=== PATIENT | male | born 1930 | race Caucasian/White ===

== ENCOUNTER 2017-08-25 11:10 | Observation (INO) | payer MEDICARE, BC ==
--- NOTE | 2017-08-25 11:22 | EDM.PDOC ---
ED HPI GENERAL MEDICAL PROBLEM - General Chief Complaint: Neuro Symptoms/Deficits Stated Complaint: POSSIBLE STROKE Time Seen by Provider: 08/25/17 11:21 Source of Information: Reports: Patient - History of Present Illness INITIAL COMMENTS - FREE TEXT/NARRATIVE: HISTORY AND PHYSICAL: History of present illness: [Patient is sent to me by his primary care Dr. Jovel [facility] Patient has had strokelike symptoms waxing and waning over the last 2 weeks, 2 weeks prior he had an episode of confusion as well as right facial droop drooling and slurred speech, he was in [place] on vacation at this time in his opted to not address the issue at that time his symptoms were improving. He did present to his primary care today He has had some other symptoms off and on again over the last 2 week period nurse actually similar symptoms waxing and waning, today he is having memory memory deficit as far as recall of numbers such as his phone number primary living address etc. otherwise he has fairly normal function strength is 5 out of 5 he is able to ambulate and eat solid food and liquid No fever nausea vomiting chills sweats no chest pain shortness breath headache dizziness palpitation no bowel or urine symptoms ] No slurred speech at current Review of systems: As per history of present illness and below otherwise all systems reviewed and negative. Past medical history: As per history of present illness and as reviewed below otherwise noncontributory. Surgical history: As per history of present illness and as reviewed below otherwise noncontributory. Social history: No reported history of drug or alcohol abuse. Family history: As per history of present illness and as reviewed below otherwise noncontributory. Physical exam: HEENT: Atraumatic, normocephalic, pupils reactive, negative for conjunctival pallor or scleral icterus, mucous membranes moist, throat clear, neck supple, nontender, trachea midline. Lungs: Clear to auscultation, breath sounds equal bilaterally, chest nontender. Heart: S1S2, regular, negative for clicks, rubs, or JVD. Abdomen: Soft, nondistended, nontender. Negative for masses or hepatosplenomegaly. Negative for costovertebral tenderness. Pelvis: Stable nontender. Genitourinary: Deferred. Rectal: Deferred. Extremities: Atraumatic, negative for cords or calf pain. Neurovascular unremarkable. Neuro: Awake, alert, oriented. Cranial nerves II through XII unremarkable. Cerebellum unremarkable. Motor and sensory unremarkable throughout. Exam nonfocal. Diagnostics: [CBC CMP UA drug screen alcohol TSH INR EKG Chest [address] no contrast ] Therapeutics: [Patient will be admitted to complete workup with MRI and ultrasound imaging discussed ] Impression: [TIA versus stroke Definitive disposition and diagnosis as appropriate pending reevaluation and review of above. - Related Data Allergies Allergy/AdvReac Type Severity Reaction Status Date / Time No Known Allergies Allergy Verified 08/25/17 11:33 Home Meds: Home Meds LORazepam [LORazepam] 0.5 mg PO ASDIRECTED PRN 08/25/17 [History] ED ROS GENERAL - Review of Systems Review Of Systems: ROS reveals no pertinent complaints other than HPI. ED EXAM, GENERAL - Physical Exam Exam: See Below Course - Vital Signs Last Recorded V/S: Last Vital Signs Temp 98.2 F 08/25/17 13:56 Pulse 88 08/25/17 13:56 Resp 16 08/25/17 13:56 BP 148/95 H 08/25/17 13:56 Pulse Ox 92 L 08/25/17 13:56 - Orders/Labs/Meds Orders: Active Orders 24 hr Category Date Time Status EKG Documentation Completion [RC] STAT Care 08/25/17 11:10 Active Labs: Laboratory Tests 08/25/17 08/25/17 08/25/17 Range/Units 11:30 11:30 11:30 WBC 5.90 (4.0-11.0) K/uL RBC 4.36 L (4.50-5.90) M/uL Hgb 14.7 (13.0-17.0) g/dL Hct 42.2 (38.0-50.0) % MCV 96.8 (80.0-98.0) fL MCH 33.7 H (27.0-32.0) pg MCHC 34.8 (31.0-37.0) g/dL RDW Std Deviation 46.9 (28.0-62.0) fl RDW Coeff of [place] 13 (11.0-15.0) % Plt Count 174 (150-400) K/uL MPV 10.60 (7.40-12.00) fL Neut % (Auto) 75.9 (48.0-80.0) % Lymph % (Auto) 14.4 L (16.0-40.0) % [place] % (Auto) 7.5 (0.0-15.0) % Eos % (Auto) 1.9 (0.0-7.0) % Baso % (Auto) 0.3 (0.0-1.5) % Neut # (Auto) 4.5 (1.4-5.7) K/uL Lymph # (Auto) 0.9 (0.6-2.4) K/uL [place] # (Auto) 0.4 (0.0-0.8) K/uL Eos # (Auto) 0.1 (0.0-0.7) K/uL Baso # (Auto) 0.0 (0.0-0.1) K/uL Nucleated RBC % 0.0 /100WBC Nucleated RBCs # 0 K/uL INR Sodium 140 (136-146) mmol/L Potassium 4.4 (3.5-5.1) mmol/L Chloride 108 (98-110) mmol/L Carbon Dioxide 22 (21-31) mmol/L BUN 22 (6.0-23.0) mg/dL Creatinine 0.7 (0.6-1.5) mg/dL Est Cr Clr Drug Dosing 74.64 mL/min Estimated GFR (MDRD) > 60.0 ml/min Glucose 98 (60-110) mg/dL Calcium 9.5 (8.8-10.8) mg/dL Total Bilirubin 1.6 H (0.1-1.5) mg/dL AST 21 (5-40) IU/L ALT 19 (8-54) IU/L Alkaline Phosphatase 81 (40-150) Creatine Kinase 55 (9-236) IU/L CK-MB (CK-2) 2.9 (0-6.6) ng/ml Troponin I < 0.10 (0.0-0.29) NG/ML B-Natriuretic Peptide 65 (<100) PG/ML Total Protein 7.0 (6.0-8.0) g/dL Albumin 4.2 (3.4-4.8) g/dL Globulin 2.8 (2.0-3.5) g/dL Albumin/Globulin Ratio 1.5 (1.3-2.8) TSH 3rd Generation 1.00 (0.36-3.74) uIU/mL Urine Color Urine Appearance Urine pH (5.0-8.0) Ur Specific [place] (1.001-1.035) Urine Protein (NEGATIVE) mg/dL Urine Glucose (UA) (NEGATIVE) mg/dL Urine Ketones (NEGATIVE) mg/dL Urine Occult Blood (NEGATIVE) Urine Nitrite (NEGATIVE) Urine Bilirubin (NEGATIVE) Urine Urobilinogen (<2.0) EU/dL Ur Leukocyte Esterase (NEGATIVE) Urine RBC (0-2/HPF) Urine WBC (0-5/HPF) Ur Epithelial Cells (NONE-FEW) Urine Bacteria (NEGATIVE) Urine Opiates Screen (NEGATIVE) Ur Oxycodone Screen (NEGATIVE) Urine Methadone Screen (NEGATIVE) Ur Barbiturates Screen (NEGATIVE) Ur Phencyclidine Scrn (NEGATIVE) Ur Amphetamine Screen (NEGATIVE) U Methamphetamines Scrn (NEGATIVE) U Benzodiazepines Scrn (NEGATIVE) U Cocaine Metab Screen (NEGATIVE) U Marijuana (THC) Screen (NEGATIVE) Ethyl Alcohol < 10.0 mg/dL 08/25/17 08/25/17 08/25/17 Range/Units 11:30 13:05 13:05 WBC (4.0-11.0) K/uL RBC (4.50-5.90) M/uL Hgb (13.0-17.0) g/dL Hct (38.0-50.0) % MCV (80.0-98.0) fL MCH (27.0-32.0) pg MCHC (31.0-37.0) g/dL RDW Std Deviation (28.0-62.0) fl RDW Coeff of [place] (11.0-15.0) % Plt Count (150-400) K/uL MPV (7.40-12.00) fL Neut % (Auto) (48.0-80.0) % Lymph % (Auto) (16.0-40.0) % [place] % (Auto) (0.0-15.0) % Eos % (Auto) (0.0-7.0) % Baso % (Auto) (0.0-1.5) % Neut # (Auto) (1.4-5.7) K/uL Lymph # (Auto) (0.6-2.4) K/uL [place] # (Auto) (0.0-0.8) K/uL Eos # (Auto) (0.0-0.7) K/uL Baso # (Auto) (0.0-0.1) K/uL Nucleated RBC % /100WBC Nucleated RBCs # K/uL INR 1.01 Sodium (136-146) mmol/L Potassium (3.5-5.1) mmol/L Chloride (98-110) mmol/L Carbon Dioxide (21-31) mmol/L BUN (6.0-23.0) mg/dL Creatinine (0.6-1.5) mg/dL Est Cr Clr Drug Dosing mL/min Estimated GFR (MDRD) ml/min Glucose (60-110) mg/dL Calcium (8.8-10.8) mg/dL Total Bilirubin (0.1-1.5) mg/dL AST (5-40) IU/L ALT (8-54) IU/L Alkaline Phosphatase (40-150) Creatine Kinase (9-236) IU/L CK-MB (CK-2) (0-6.6) ng/ml Troponin I (0.0-0.29) NG/ML B-Natriuretic Peptide (<100) PG/ML Total Protein (6.0-8.0) g/dL Albumin (3.4-4.8) g/dL Globulin (2.0-3.5) g/dL Albumin/Globulin Ratio (1.3-2.8) TSH 3rd Generation (0.36-3.74) uIU/mL Urine Color YELLOW Urine Appearance CLEAR Urine pH 7.0 (5.0-8.0) Ur Specific [place] 1.020 (1.001-1.035) Urine Protein NEGATIVE (NEGATIVE) mg/dL Urine Glucose (UA) NEGATIVE (NEGATIVE) mg/dL Urine Ketones NEGATIVE (NEGATIVE) mg/dL Urine Occult Blood NEGATIVE (NEGATIVE) Urine Nitrite NEGATIVE (NEGATIVE) Urine Bilirubin NEGATIVE (NEGATIVE) Urine Urobilinogen 0.2 (<2.0) EU/dL Ur Leukocyte Esterase NEGATIVE (NEGATIVE) Urine RBC 0-1 (0-2/HPF) Urine WBC 0-1 (0-5/HPF) Ur Epithelial Cells FEW (NONE-FEW) Urine Bacteria FEW (NEGATIVE) Urine Opiates Screen NEGATIVE (NEGATIVE) Ur Oxycodone Screen NEGATIVE (NEGATIVE) Urine Methadone Screen NEGATIVE (NEGATIVE) Ur Barbiturates Screen NEGATIVE (NEGATIVE) Ur Phencyclidine Scrn NEGATIVE (NEGATIVE) Ur Amphetamine Screen NEGATIVE (NEGATIVE) U Methamphetamines Scrn NEGATIVE (NEGATIVE) U Benzodiazepines Scrn NEGATIVE (NEGATIVE) U Cocaine Metab Screen NEGATIVE (NEGATIVE) U Marijuana (THC) Screen NEGATIVE (NEGATIVE) Ethyl Alcohol mg/dL Departure - Departure Time of Disposition: 14:44 Disposition: Refer to Observation Condition: Fair Clinical Impression: TIA (transient ischemic attack) - Discharge Information Referrals: Jr Jovel MD [Primary Care Provider] - Forms: ED Department Discharge - My Orders Last 24 Hours: My Active Orders 08/25/17 11:10 EKG Documentation Completion [RC] STAT - Assessment/Plan Last 24 Hours: My Active Orders 08/25/17 11:10 EKG Documentation Completion [RC] STAT
[2017-08-25 12:00] LABS: CHLORIDE,CL 108 mmol/L (98-110); SODIUM,NA 140 mmol/L (136-146)
--- NOTE | 2017-08-25 13:19 | CT ---
EXAMINATION: Non contrast CT head. Coronal and sagittal reformats. HISTORY: Altered mental status FINDINGS: No evidence of intra or extra axial hemorrhage, mass, midline shift, hydrocephalus or edema. Mild to moderate generalized atrophy. No hypoattenuation changes in the major vascular territories to suggest acute infarct. No abnormal intracranial calcifications are detected. No evidence of substantial vascular calcificat ions. Paranasal sinuses and mastoid air cells are well aerated without substantial findings. Orbits and gl obes are symmetric. Pituitary fossa appears unremarkable. Calvarium is intact. No evidence of skull fracture. IMPRESSION: 1. No acute intracranial findings. 2. Generalized atrophy.
--- NOTE | 2017-08-25 13:19 | CR ---
EXAMINATION: Portable chest radiograph. HISTORY: Altered mental status. FINDINGS: The trachea is midline. The cardiomediastinal silhouette is within normal limits. No pulmonary infilt rates, effusions or pneumothorax. Mild interstitial prominence. Osseous structures appear unremarkable. IMPRESSION: No acute cardiopulmonary process.
[2017-08-25] MEDS ORDERED: HYDROmorphone 1 MG/ML Syringe IM ONE (13:57)
[2017-08-25] MEDS ORDERED: Aspirin 81 MG Tab.Chew PO ONE (14:44)
[2017-08-25] MEDS ORDERED: Sodium Chloride 0.9% 10 ML Syringe FLUSH PRN (15:50)
[2017-08-25] MEDS ORDERED: Sodium Chloride 0.9% 2.5 ML Syringe FLUSH PRN (15:50)
[2017-08-25] MEDS ORDERED: Clopidogrel 75 MG Tab PO ONE (16:04)
[2017-08-25] MEDS ORDERED: Sodium Chloride 0.9% 1,000 ML IV ONE (16:22)
--- NOTE | 2017-08-25 17:41 | PCM.HP ---
H&P History of Present Illness - General Date of Service: 08/25/17 Source of Information: Patient, Family History Limitations: Reports: No Limitations - History of Present Illness Initial Comments - Free Text/Narative: This is an 87-year-old male who is presenting with his secondary to stroke type symptoms that started 2 weeks back while on vacation. Patient's stated that the initiation of symptoms started with slurring of speech, facial droop and right-sided weakness. At that time they did not seek any medical attention, and the symptoms essentially self resolved. However since coming back from vacation patient's states that they have noticed that he is starting to have more and more cognitive related issues in particular with numbers. The patient has an inability to recall his home phone number or his home address. The patient's cognition is otherwise appropriate. Patient presently does not have any strength deficiencies on the right side of any other neurological dysfunction that is appreciable. Patient denies any cardiovascular history, denies any [place] history, states that he is not on any hypertensive medication on a lipid-lowering medication. Patient denies any history of diabetes. Patient has been prescribed Ativan 1 mg when necessary for anxiety that he has been taking for the past couple of months. - Related Data Allergies/Adverse Reactions: Allergies Allergy/AdvReac Type Severity Reaction Status Date / Time No Known Allergies Allergy Verified 08/25/17 11:33 Home Medications: Home Meds LORazepam [LORazepam] 0.5 mg PO ASDIRECTED PRN 08/25/17 [History] Social & Family History - Tobacco Use Smoking Status *Q: Never Smoker Second Hand Smoke Exposure: No - Caffeine Use Caffeine Use: Reports: Coffee - Alcohol Use Date of Last Drink: 08/24/17 Time of Last Drink: 16:00 - Recreational Drug Use Recreational Drug Use: No H&P Review of Systems - Review of Systems: Review Of Systems: ROS reveals no pertinent complaints other than HPI. Exam - Exam Exam: See Below - Vital Signs Vital Signs: Last Vital Signs Temp 36.4 C 08/25/17 15:25 Pulse 83 08/25/17 15:25 Resp 18 08/25/17 15:25 BP 172/89 H 08/25/17 15:25 Pulse Ox 93 L 08/25/17 15:25 Weight: 99.836 kg - Exam General: Alert, Oriented, Cooperative HEENT: Conjunctiva Clear Neck: Supple Lungs: Clear to Auscultation, Normal Respiratory Effort Cardiovascular: Regular Rhythm GI/Abdominal Exam: Normal Bowel Sounds Extremities: Normal Inspection, Normal Range of Motion Neurological: Cranial Nerves Intact, Normal Speech - Patient Data Result Diagrams: 08/25/17 11:30 08/25/17 11:30 *Q Meaningful Use (ADM) - VTE *Q VTE Criteria *Q: - Stroke *Q Stroke Criteria *Q: - AMI *Q AMI Criteria *Q: - Problem List (1) Cognitive dysfunction SNOMED Code(s): 542490555 ICD Code: F09 - UNSP MENTAL DISORDER DUE TO KNOWN PHYSIOLOGICAL CONDITION Status: Acute Current Visit: Yes (2) TIA (transient ischemic attack) SNOMED Code(s): 579130909 ICD Code: G45.9 - TRANSIENT CEREBRAL ISCHEMIC ATTACK, UNSPECIFIED Status: Acute Current Visit: Yes Problem List Initiated/Reviewed/Updated: Yes Orders Last 24hrs: Active Orders 24 hr Category Date Time Status Patient Status [ADT] Routine ADT 08/25/17 15:54 Active Antiembolic Devices [RC] PER UNIT ROUTINE Care 08/25/17 16:00 Active Cardiac Monitoring [RC] CONTINUOUS Care 08/25/17 15:57 Active Cardiac Monitoring [RC] Q8H Care 08/25/17 16:02 Active Height and Weight [RC] UPON Care 08/25/17 15:50 Active Intake and Output [RC] QSHIFT Care 08/25/17 15:57 Active Modified [place] Swallow Screen [Nursing Bedside Swallow Care 08/25/17 16:35 Active Screen] [RC] ASDIRECTED Notify Provider Vital Signs [RC] ASDIRECTED Care 08/25/17 15:58 Active Oxygen Therapy [RC] PRN Care 08/25/17 15:54 Active Pulse Oximetry [RC] CONTINUOUS Care 08/25/17 15:57 Active Up With Assistance [RC] ASDIRECTED Care 08/25/17 15:50 Active VTE/DVT Education [RC] PER UNIT ROUTINE Care 08/25/17 15:54 Active Vital Signs [RC] Q4H Care 08/25/17 15:54 Active OT Evaluation and Treatment [CONS] Routine Cons 08/25/17 16:07 Active PT Evaluation and Treatment [CONS] Routine Cons 08/25/17 16:07 Active DIRECT SERVICE PROFESSIONAL Evaluation and Treatment [CONS] Routine Cons 08/25/17 16:07 Active Heart Healthy Diet [DIET] Diet 08/25/17 Dinner Active Ang Head wo Cont [MR] Routine Exams 08/25/17 16:02 Ordered Ang Neck wo Cont [MR] Routine Exams 08/25/17 16:02 Ordered Brain w wo Cont [MR] Routine Exams 08/25/17 16:41 Ordered Brain wo Cont [MR] Routine Exams 08/25/17 16:02 Stop Req Sodium Chloride 0.9% [Saline Flush] Med 08/25/17 15:50 Active 10 ml FLUSH ASDIRECTED PRN Sodium Chloride 0.9% [Saline Flush] Med 08/25/17 15:50 Active 2.5 ml FLUSH ASDIRECTED PRN Peripheral IV Insertion Adult [OM.PC] Routine Oth 08/25/17 15:50 Ordered Saline Lock Insert [OM.PC] Routine Oth 08/25/17 15:50 Ordered Sequential Compression Device [OM.PC] Per Unit Routine Oth 08/25/17 15:58 Ordered Resuscitation Status Routine Resus Stat 08/25/17 15:50 Ordered Medication Orders Sodium Chloride (Saline Flush) 10 ml FLUSH ASDIRECTED PRN PRN Reason: Keep Vein Open Sodium Chloride (Saline Flush) 2.5 ml FLUSH ASDIRECTED PRN PRN Reason: Keep Vein Open Assessment/Plan Comment:: This is an 87-year-old gentleman that is presenting secondary to neurological issues including right sided weakness and facial droop that occurred 2 weeks prior to admission and have resolved however now is experiencing cognitive- related concerns most likely etiology is transient ischemic attack versus stroke other etiologies to consider include Adementia as the patient did have atrophy on the head CT. Assessment/Plan: #1. Right-sided weakness with facial droop that occurred 2 weeks prior that has resolved with current cognitive-related issues rule out TIA/stroke - Patient to get a MRI with and without contrast, an MRA of the head and neck without contrast - Patient has received aspirin 325 mg in the ER shall continue aspirin tomorrow also shall start statin therapy - Patient shall also be assessed by physical therapy, bedside nursing swallow assessment patient has past as such patient shall start a heart healthy diet. - SCDs for DVT prophylaxis only
[2017-08-25] MEDS ORDERED: LORazepam 1 MG Tab PO ONE (20:31)
[2017-08-26 05:27] LABS: CHLORIDE,CL 108 mmol/L (98-110); SODIUM,NA 141 mmol/L (136-146)
[2017-08-26] MEDS ORDERED: Aspirin 81 MG Tab.Chew PO ONE (08:24)
[2017-08-26] MEDS ORDERED: Aspirin 81 MG Tab.Chew PO SCH (09:00)
--- NOTE | 2017-08-26 11:49 | US ---
EXAMINATION: Carotid US with english scale and duplex imaging. HISTORY: TIA FINDINGS: Ultrasound examination of bilateral cervical carotid arteries was performed using english scale and dupl ex imaging. Mild scattered atheromatous changes noted within the carotid arteries bilaterally. Ante grade flow is noted within the vertebral arteries. These are the peak velocities in cm per second (systole), right and left respectively, by a comma: CCA (common carotid artery) - 138, 1:15 ICA (internal carotid artery) - 102, 75 ECA (External carotid artery) - 140, 111 ICA/CCA systolic ratio Right - 1.2 Left - 1.0 IMPRESSION: Mild scattered atheromatous changes noted within the carotid arteries without significant stenosis or elevated velocities.
--- NOTE | 2017-08-26 17:34 | PCM.DCSUM1 ---
<David Kelly Z - Last Filed: 08/26/17 17:25> Discharge Summary - Hospital Course HPI Initial Comments: Discharge Summary Date of admission: 08/25/2017 Date of discharge: 08/26/2017 Admitting diagnosis: #1. TIA/stroke type symptoms rule out #2. Cognitive dysfunction #3. #4. #5. Discharge diagnoses: #1. TIA/stroke type symptoms #2. Cognitive dysfunction #3. Panic attacks/underlies anxiety disorder #4. #5. Consultations: None Procedures: None Hospitalization course: Patient was admitted to inpatient for observation to assess for possibility of acute stroke/TIA type symptoms. The patient had the acute stroke/TIA symptoms 2 weeks ago and no longer is having any strength deficiencies, the patient does have cognitive dysfunction primarily in trying to home phone number at home address. A MRI with and without contrast of the brain as well as an MRA of the head and neck were ordered. Unfortunately the patient due to his panic attacks/generalized anxiety disorder was unable to tolerate the imaging technique despite an oral Ativan being given. Subsequently , the patient got an ultrasound of his carotids which show any significant stenosis. Awaiting the results of the echocardiogram. We believe that the patient's cognitive dysfunction may be linked to his lorazepam use. Since his cognitive dysfunction started to take place around the time he started to take lorazepam as a scheduled dose rather than a when necessary dose. Lorazepam is prescribed as a when necessary dose however recently the patient has started to take it every single day. As such we have decided to the patient on an SSRI for his panic attacks/generalized anxiety disorder and to take lorazepam only as a when necessary dose and the ultimate goal will be to discontinue the lorazepam. As for the patient's stroke type symptoms we have been treating that with aspirin 81 mg daily along with the addition of Lipitor 20 mg daily. The patient has been discharged with the recommendation to follow-up with his primary care physician Dr. Jr Jovel in the next week as well as a follow-up appointment with neurology to assess for stroke type symptoms/TIA in an outpatient setting. Disposition on discharge: Home Condition on discharge: Stable Discharge medications: Continuation of home medication, aspirin 81 mg daily, Lipitor 20 mg daily, Zoloft 25 mg daily Follow-up instructions: Follow-up with Dr. Jr Jovel within one week, follow- up with Dr. 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 Treatment [CONS] Routine - Patient Instructions Diet: Heart Healthy Diet Activity: As Tolerated Driving: Do Not Drive Showering/Bathing: May Shower Notify Provider of: Fever, Increased Pain, Swelling and Redness, Drainage, Nausea and/or Vomiting - Discharge Plan Prescriptions/Med Rec: Aspirin 81 mg PO DAILY 30 Days #30 tab.chew atorvaSTATin [Lipitor] 20 mg PO BEDTIME 30 Days #30 tablet Sertraline [Zoloft] 25 mg PO 6XDAY 30 Days #30 tablet Home Medications: Home Meds LORazepam 0.5 mg PO ASDIRECTED PRN 08/25/17 [History] Aspirin 81 mg PO DAILY 30 Days #30 tab.chew 08/26/17 [Rx] Sertraline [Zoloft] 25 mg PO 6XDAY 30 Days #30 tablet 08/26/17 [Rx] atorvaSTATin [Lipitor] 20 mg PO BEDTIME 30 Days #30 tablet 08/26/17 [Rx] Patient Handouts: Transient Ischemic Attack, [id number], Panic Attacks, Easy- to-Read, Atorvastatin tablets, Aspirin, ASA oral tablets, Sertraline tablets Referrals: Mary Lou Silva MD [Physician] - 08/31/17 1:00 pm (Please check in at 12:45 p.m.) Jr Jovel MD [Primary Care Provider] - 09/06/17 10:15 am - Discharge Summary/Plan Comment DC Time >30 min.: No - Patient Data Vitals - Most Recent: Last Vital Signs Temp 36.9 C 08/26/17 12:00 Pulse 80 08/26/17 12:00 Resp 20 08/26/17 12:00 BP 145/71 H 08/26/17 12:00 Pulse Ox 93 L 08/26/17 12:00 Weight - Most Recent: 99.836 kg I&O - Last 24 hours: Intake & Output 08/26/17 08/26/17 08/26/17 06:59 14:59 22:59 Intake Total 200 Output Total 1000 Balance -800 Lab Results - Last 24 hrs: Laboratory Results - last 24 hr 08/26/17 08/26/17 Range/Units 04:33 04:33 WBC 6.04 (4.0-11.0) K/uL RBC 4.18 L (4.50-5.90) M/uL Hgb 14.0 (13.0-17.0) g/dL Hct 40.5 (38.0-50.0) % MCV 96.9 (80.0-98.0) fL MCH 33.5 H (27.0-32.0) pg MCHC 34.6 (31.0-37.0) g/dL RDW Std Deviation 46.2 (28.0-62.0) fl RDW Coeff of Marilia 13 (11.0-15.0) % Plt Count 150 (150-400) K/uL MPV 10.90 (7.40-12.00) fL Neut % (Auto) 62.3 (48.0-80.0) % Lymph % (Auto) 23.5 (16.0-40.0) % [place] % (Auto) 10.4 (0.0-15.0) % Eos % (Auto) 3.5 (0.0-7.0) % Baso % (Auto) 0.3 (0.0-1.5) % Neut # (Auto) 3.8 (1.4-5.7) K/uL Lymph # (Auto) 1.4 (0.6-2.4) K/uL [place] # (Auto) 0.6 (0.0-0.8) K/uL Eos # (Auto) 0.2 (0.0-0.7) K/uL Baso # (Auto) 0.0 (0.0-0.1) K/uL Nucleated RBC % 0.0 /100WBC Nucleated RBCs # 0 K/uL Sodium 141 (136-146) mmol/L Potassium 4.4 (3.5-5.1) mmol/L Chloride 108 (98-110) mmol/L Carbon Dioxide 25 (21-31) mmol/L BUN 19 (6.0-23.0) mg/dL Creatinine 0.7 (0.6-1.5) mg/dL Est Cr Clr Drug Dosing 79.66 mL/min Estimated GFR (MDRD) > 60.0 ml/min Glucose 98 (60-110) mg/dL Calcium 9.3 (8.8-10.8) mg/dL Med Orders - Current: Current Medications Aspirin (Aspirin) 81 mg PO DAILY [facility] Last Admin: 08/26/17 10:30 Dose: 81 mg Atorvastatin Calcium (Lipitor) 20 mg PO BEDTIME LAUREN Sodium Chloride (Saline Flush) 10 ml FLUSH ASDIRECTED PRN PRN Reason: Keep Vein Open Sodium Chloride (Saline Flush) 2.5 ml FLUSH ASDIRECTED PRN PRN Reason: Keep Vein Open Discontinued Medications Aspirin (Aspirin) 324 mg PO ONETIME ONE Stop: 08/25/17 14:45 Last Admin: 08/25/17 14:58 Dose: 324 mg Aspirin (Aspirin) 81 mg PO ONETIME ONE Stop: 08/26/17 08:25 Last Admin: 08/26/17 11:33 Dose: Not Given Clopidogrel Bisulfate (Plavix) 75 mg PO ONETIME ONE Stop: 08/25/17 16:05 Last Admin: 08/25/17 17:06 Dose: Not Given Sodium Chloride (Normal Saline) 1,000 mls @ 999 mls/hr IV STAT ONE Stop: 08/25/17 17:22 Last Admin: 08/25/17 17:06 Dose: Not Given Lorazepam (Ativan) 1 mg PO ONETIME ONE Stop: 08/25/17 20:32 Last Admin: 08/25/17 20:45 Dose: 1 mg *Q Meaningful Use (DIS) - VTE *Q VTE Criteria *Q: - Stroke *Q Stroke Criteria *Q: - AMI *Q AMI Criteria *Q: <Apolinar Peck - Last Filed: 08/31/17 07:28> Discharge Summary - Patient Summary/Data Consults: Consultations 08/25/17 16:07 OT Evaluation and Treatment [CONS] Routine PT Evaluation and Treatment [CONS] Routine 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 Treatment [CONS] Routine - Patient Data Vitals - Most Recent: Last Vital Signs Temp 36.8 C 08/26/17 16:00 Pulse 81 08/26/17 16:00 Resp 16 08/26/17 16:00 BP 183/81 H 08/26/17 16:00 Pulse Ox 91 L 08/26/17 16:00 Med Orders - Current: Current Medications Discontinued Medications Aspirin (Aspirin) 324 mg PO ONETIME ONE Stop: 08/25/17 14:45 Last Admin: 08/25/17 14:58 Dose: 324 mg Aspirin (Aspirin) 81 mg PO ONETIME ONE Stop: 08/26/17 08:25 Last Admin: 08/26/17 11:33 Dose: Not Given Aspirin (Aspirin) 81 mg PO DAILY LAUREN Last Admin: 08/26/17 10:30 Dose: 81 mg Atorvastatin Calcium (Lipitor) 20 mg PO BEDTIME LAUREN Clopidogrel Bisulfate (Plavix) 75 mg PO ONETIME ONE Stop: 08/25/17 16:05 Last Admin: 08/25/17 17:06 Dose: Not Given Sodium Chloride (Normal Saline) 1,000 mls @ 999 mls/hr IV STAT ONE Stop: 08/25/17 17:22 Last Admin: 08/25/17 17:06 Dose: Not Given Lorazepam (Ativan) 1 mg PO ONETIME ONE Stop: 08/25/17 20:32 Last Admin: 08/25/17 20:45 Dose: 1 mg Sodium Chloride (Saline Flush) 10 ml FLUSH ASDIRECTED PRN PRN Reason: Keep Vein Open Sodium Chloride (Saline Flush) 2.5 ml FLUSH ASDIRECTED PRN PRN Reason: Keep Vein Open *Q Meaningful Use (DIS) - VTE *Q VTE Criteria *Q: - Stroke *Q Stroke Criteria *Q: - AMI *Q AMI Criteria *Q: - Free Text/Narrative Note: I have examined the patient. I have discussed findings and treatment plan with the resident. I agree with the assessment and plan outlined in the following resident's note.
[2017-08-26] MEDS ORDERED: atorvaSTATin 20 MG Tab PO SCH (21:00)
--- NOTE | 2017-08-29 19:50 | ECHO ---
This patient's echocardiogram report can be seen in this patient's EMR ( electronic medical records) in the Reports section. The echocardiogram report has also been scanned into PACS and can be seen there. AYDIN
== END 2017-08-26 18:16 | disposition home or self-care (01) ==
LOC: MW.ED 11:10 → MW.MS 15:13
PROVIDERS: ADMIT Internal Medicine; ATTEND Internal Medicine
DX: G45.9 Transient cerebral ischemic attack, unspecified (principal); F09 Unspecified mental disorder due to known physiological condition; F41.9 Anxiety disorder, unspecified; Z79.82 Long term (current) use of aspirin; Z79.899 Other long term (current) drug therapy
CPT/HCPCS: 36415; 70450; 71045; 80048; 80053; 80061; 80305; 81001; 82550; 82553; 83880; 84443; 84484; 85025; 85610; 92610; 93005; 93306; 93880; 97161; 99285; A9270; G0378; G0480

== ENCOUNTER 2019-08-29 14:32 | Emergency (ER) | payer MEDICARE, BC ==
--- NOTE | 2019-08-29 15:08 | CR ---
Left elbow: 3 views left elbow were obtained. Comparison: No previous elbow study. Soft tissue swelling is identified. No joint effusion is seen. No fracture or other bony abnormality is appreciated. No bony erosions are noted. Impression: 1. Soft tissue swelling. 2. No acute bony abnormality is identified. Diagnostic code #2 Study was dictated in [place] Standard Time
--- NOTE | 2019-08-29 15:50 | EDM.PDOC ---
ED [facility] GENERAL MEDICAL PROBLEM - General Chief Complaint: Upper Extremity Injury/Pain Stated Complaint: SWALLON IN LT ARM Time Seen by Provider: 08/29/19 15:49 Source of Information: Reports: Patient, Family History Limitations: Reports: No Limitations - History of Present Illness INITIAL COMMENTS - FREE TEXT/NARRATIVE: Patient is an 89-year-old male presenting with a chief complaint of left elbow pain and swelling. Patient states he has had the symptoms for over 1 week. Patient was in the clinic today being evaluated for this but was referred to the emergency department for concerns about a septic joint. Patient denies any fevers, chills, nausea, vomiting. Patient denies any traumatic injury to the elbow. Patient denies any prior similar symptoms in the past. Pmhx: None Pshx: None Family Hx: noncontributory Smoking history? no Etoh use? none Drug use? none In addition to that documented in the HPI above, the additional ROS was obtained : Constitutional: Denies fevers or chills Eyes: Denies vision changes ENMT: Denies sore throat CV: Denies chest pain Resp: Denies SOB GI: Denies vomiting or diarrhea : Denies painful urination MSK: Denies recent trauma Skin: Denies new rashes Neuro: Denies new numbness or tingling or weakness Endocrine: Denies unexpected weight loss Heme: Denies bleeding disorders I have reviewed the triage vital signs Const: Well nourished, well developed, appears stated age Eyes: PERRL, no conjunctival injection HENT: NCAT, Neck supple without meningismus CV: RRR, Warm, well-perfused extremities RESP: CTAB, Unlabored respiratory effort GI: soft, non-tender, non-distended, no masses MSK: Left elbow exam demonstrates swollen bursa with erythema and warmth. Patient has full range of motion of the elbow without pain. Skin: Warm, dry. No rashes Neuro: Alert, dye room helper II-XII grossly intact. Sensation and motor function of extremities grossly intact. Psych: Appropriate mood and affect Assessment and plan: Patient is an 89-year-old male presenting with swelling of the left elbow. Patient has likely inflammatory versus septic bursitis. Patient has no evidence of septic joint. Patient evaluated by Dr. Altamirano in the emergency room who agreed with diagnosis of bursitis which seemed more inflammatory in nature. The patient had drainage of the bursa with about 10 cc of straw-colored fluid. Patient started on antibiotics while awaiting culture. Patient will follow-up with Dr. Altamirano as an outpatient. Patient given strict return precautions. Procedure note: Patient was positioned appropriately. Patient prepped with Betadine. A 18- gauge needle was used with syringe to aspirate using anatomic landmarks. Approximately 10 cc of straw-colored fluid was aspirated. Patient tolerated procedure well with no immediate complications. Sterile dressing was applied to the area. left elbow Pain Score (Numeric/FACES): 3 - Related Data Allergies Allergy/AdvReac Type Severity Reaction Status Date / Time No Known Allergies Allergy Verified 08/29/19 14:58 Home Meds: Home Meds LORazepam 0.25 mg PO ASDIRECTED PRN 08/25/17 [History] Aspirin 81 mg PO DAILY 30 Days #30 tab.chew 08/26/17 [Rx] Sulfamethoxazole/Trimethoprim [Bactrim Ds Tablet] 1 each PO BID #20 tablet 08/29 [Rx] cephALEXin [Keflex] 500 mg PO Q8H 10 Days #30 cap 08/29/19 [Rx] Past Medical History HEENT History: Reports: Hard of Hearing Musculoskeletal History: Reports: Back Pain, Chronic Psychiatric History: Reports: Anxiety, Depression - Infectious Disease History Infectious Disease History: Reports: Mumps Social & Family History - Family History Family Medical History: Noncontributory - Tobacco Use Smoking Status *Q: Never Smoker - Caffeine Use Caffeine Use: Reports: Coffee - Recreational Drug Use Recreational Drug Use: No Review of Systems - Review of Systems Review Of Systems: See Below ED EXAM, GENERAL - Physical Exam Exam: See Below Course - Vital Signs Last Recorded V/S: Last Vital Signs Temp 36.0 C L 08/29/19 17:35 Pulse 79 08/29/19 17:35 Resp 18 08/29/19 14:55 BP 128/95 H 08/29/19 17:35 Pulse Ox 95 08/29/19 17:35 - Orders/Labs/Meds Orders: Active Orders 24 hr Category Date Time Status CULTURE BLOOD [BC] Stat Lab 08/29/19 15:49 Received CULTURE BLOOD [BC] Stat Lab 08/29/19 15:59 Received CULTURE BODY FLUID + SMEAR [RM] Stat Lab 08/29/19 17:00 Received Blood Culture x2 Reflex Set [OM.PC] Stat Oth 08/29/19 14:36 Ordered Labs: Laboratory Tests 08/29/19 08/29/19 08/29/19 Range/Units 15:49 15:49 17:00 WBC 7.38 (4.0-11.0) K/uL RBC 4.21 L (4.50-5.90) M/uL Hgb 14.1 (13.0-17.0) g/dL Hct 41.1 (38.0-50.0) % MCV 97.6 (80.0-98.0) fL MCH 33.5 H (27.0-32.0) pg MCHC 34.3 (31.0-37.0) g/dL RDW Std Deviation 47.0 (28.0-62.0) fl RDW Coeff of Marilia 13 (11.0-15.0) % Plt Count 187 (150-400) K/uL MPV 10.20 (7.40-12.00) fL Neut % (Auto) 73.4 (48.0-80.0) % Lymph % (Auto) 16.7 (16.0-40.0) % [place] % (Auto) 8.0 (0.0-15.0) % Eos % (Auto) 1.6 (0.0-7.0) % Baso % (Auto) 0.3 (0.0-1.5) % Neut # (Auto) 5.4 (1.4-5.7) K/uL Lymph # (Auto) 1.2 (0.6-2.4) K/uL [place] # (Auto) 0.6 (0.0-0.8) K/uL Eos # (Auto) 0.1 (0.0-0.7) K/uL Baso # (Auto) 0.0 (0.0-0.1) K/uL Nucleated RBC % 0.0 /100WBC Nucleated RBCs # 0 K/uL Sodium 144 (136-148) mmol/L Potassium 4.5 (3.5-5.1) mmol/L Chloride 108 H (98-107) mmol/L Carbon Dioxide 26.9 (21.0-32.0) mmol/L BUN 30 H (7.0-18.0) mg/dL Creatinine 0.8 (0.8-1.3) mg/dL Est Cr Clr Drug Dosing 67.17 mL/min Estimated GFR (MDRD) > 60.0 ml/min Glucose 106 (74-106) mg/dL Calcium 9.1 (8.5-10.1) mg/dL Total Bilirubin 0.9 (0.2-1.0) mg/dL AST 19 (15-37) IU/L ALT 20 (14-63) IU/L Alkaline Phosphatase 83 (46-116) U/L Total Protein 7.1 (6.4-8.2) g/dL Albumin 3.4 (3.4-5.0) g/dL Globulin 3.7 (2.6-4.0) g/dL Albumin/Globulin Ratio 0.9 (0.9-1.6) Fluid Type OTH Fluid Color YELLOW Fluid Appearance CLOUDY Fluid pH 8.0 Fluid WBC 2091 /uL Fluid RBC 5000 /uL Fluid Mononuclear Cell 30 % Fl Polymorphonucl Cell 70 % Fluid Glucose 76 mg/dL Fluid Total Protein 4.5 g/dL Departure - Departure Time of Disposition: 18:18 Disposition: Home, Self-Care 01 Clinical Impression: Bursitis of left elbow - Discharge Information Prescriptions: cephALEXin [Keflex] 500 mg PO Q8H 10 Days #30 cap Sulfamethoxazole/Trimethoprim [Bactrim Ds Tablet] 1 each PO BID #20 tablet Instructions: Bursitis Referrals: Macarena Donnelly MD [Primary Care Provider] - Forms: ED Department Discharge Additional Instructions: The following information is given to patients seen in the emergency department who are being discharged to home. This information is to outline your options for follow-up care. We provide all patients seen in our emergency department with a follow-up referral. The need for follow-up, as well as the timing and circumstances, are variable depending upon the specifics of your emergency department visit. If you don't have a primary care physician on staff, we will provide you with a referral. We always advise you to contact your personal physician following an emergency department visit to inform them of the circumstance of the visit and for follow-up with them and/or the need for any referrals to a consulting specialist. The emergency department will also refer you to a specialist when appropriate. This referral assures that you have the opportunity for follow-up care with a specialist. All of these measure are taken in an effort to provide you with optimal care, which includes your follow-up. Under all circumstances we always encourage you to contact your private physician who remains a resource for coordinating your care. When calling for follow-up care, please make the office aware that this follow-up is from your recent emergency room visit. If for any reason you are refused follow-up, please contact the [facility] Emergency Department at and asked to speak to the emergency department charge nurse. Sepsis Event Note - Evaluation Sepsis Screening Result: No Definite Risk - Focused Exam Vital Signs: Vital Signs Temp Pulse Resp BP Pulse Ox 08/29/19 17:35 36.0 C L 79 128/95 H 95 08/29/19 14:55 36.6 C 77 18 180/78 H 95 Date Exam was Performed: 08/29/19 Time Exam was Performed: 18:32 - My Orders Last 24 Hours: My Active Orders 08/29/19 17:00 CULTURE BODY FLUID + SMEAR [RM] Stat - Assessment/Plan Last 24 Hours: My Active Orders 08/29/19 17:00 CULTURE BODY FLUID + SMEAR [RM] Stat
[2019-08-29 16:39] LABS: BLOOD UREA NITROGEN,BUN 30 mg/dL (7.0-18.0); CARBON DIOXIDE,CO2 26.9 mmol/L (21.0-32.0); CHLORIDE,CL 108 mmol/L (98-107); GLUCOSE RANDOM 106 mg/dL (74-106); POTASSIUM,K 4.5 mmol/L (3.5-5.1); SODIUM,NA 144 mmol/L (136-148)
== END 2019-08-29 18:33 | disposition home or self-care (01) ==
LOC: MW.ED 14:32
DX: M70.32 Other bursitis of elbow, left elbow (principal); F41.9 Anxiety disorder, unspecified; Z79.82 Long term (current) use of aspirin; Z79.899 Other long term (current) drug therapy
CPT/HCPCS: 10160; 20605; 36415; 73080-26-LT; 73080-LT; 80053; 82945; 83986; 84157; 85025; 87040; 87070; 87077; 87186; 87205; 89050; 99283; 99283-25